=== PATIENT | female | born 1955 | race Caucasian/White ===

== ENCOUNTER 2023-11-16 06:19 | Day surgery (SDC) | payer MEDICARE, SELFPAY ==
[2023-11-16 06:34] VITALS: BMI 26.7
[2023-11-16 06:51] VITALS: BP 148/90; PULSE 73; RESP 16; TEMP 36.7; O2SAT 97
[2023-11-16 06:53] LABS: Hemoglobin* 14.7 gm/dL (12.0-16.0)
[2023-11-16] MEDS: LACTATED RINGERS 1000 ML 1,000 ML 100 ML IV (06:55)
--- NOTE | 2023-11-16 07:19 | W.PM.H&PU ---
History & Physical Update History & Physical Update H&P Reviewed and patient assessed: No changes noted
--- NOTE | 2023-11-16 07:19 | PM.PROC ---
Procedure Note Time Seen by Provider: 08:13 Date Seen: 11/16/23 Date of procedure: 11/16/23 Will [facility] bill your pro fee for this procedure?: Yes Surgeon: Preop diagnosis: Eva is a 68 year-old woman with stress urinary incontinence. Postop diagnosis: Same. Procedure: Transobturator, suburethral sling placement Anesthesia: Conscious sedation, local Total IV fluid: 1000 mL Estimated blood loss : 30 mL Specimen: None Drains: Manrique to gravity Findings: On diagnostic cystoscopy after the sling was placed to there was no evidence of bladder or urethral injury. Procedure Eva was taken to the operating room and conscious sedation was found to be adequate. The patient was placed in high Olsen's position for the sling placement. A weighted speculum was placed in the posterior vaginal introitus. A marker was used to place turner in the groin folds at the level of the clitoris. 1% lidocaine with epinephrine was injected into both the groin fold incision sites and the anterior aspect of the vaginal canal at the mid urethral junction. Two punch incisions were made at each of the groin fold sites. A 2 cm it vertical incision was made anterior aspect of the vaginal canal just below the mid urethral junction. The right Devon trocar was then advanced through the right groin incision and the right side of the sling was attached to the trocar and the trocar reverse through the incision to pull the sling through. The left trocar was then placed in the left side of the sling then pulled through in a similar manner. The Manrique catheter was briefly removed for diagnostic cystoscopy with the above finding stated. A 9. Cervical dilator was placed between the sling and the vaginal canal and the sling pulled tight. The trocars were then removed using a scissors, the plastic overlying the sling was removed and the sling cut to below the groin fold skin incisions. Exofin adhesive gel was applied to the groin fold incisions. The vaginal incision was repaired using 2-0 Vicryl in a running locked manner. The speculum was removed. Sponge, lap and instrument counts were correct x2 at the end the procedure. The patient was awakened from anesthesia taken to the recovery area in stable condition. The patient received 2gm Ancef prior to the start of the procedure
[2023-11-16] MEDS: CEFAZOLIN 2 GM INJ IVP (07:41)
[2023-11-16] MEDS: KETOROLAC 30 MG/ML inj IVP (08:05)
[2023-11-16 08:15] VITALS: BP 123/65; PULSE 92; RESP 16; TEMP 36.7; O2SAT 96
--- NOTE | 2023-11-16 08:16 | P.ANES_ITS ---
Anesthesia Charges Start Date/Time Anesthesia Start Date: 11/16/23 Anesthesia Start Time: 07:28 Stop Date/Time Anesthesia Stop Date: 11/16/23 Anesthesia Stop Time: 08:15 Summary Extremes of Age - Over 70 or under 1: [employer]
--- NOTE | 2023-11-16 08:18 | W.ANESCHARGE ---
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
[2023-11-16 08:30] VITALS: BP 134/74; PULSE 82; RESP 16; O2SAT 96
[2023-11-16 08:45] VITALS: BP 143/87; PULSE 80; RESP 16; O2SAT 96
[2023-11-16 09:05] VITALS: BP 130/88; PULSE 87; RESP 16; O2SAT 95
--- NOTE | 2023-11-16 10:11 | SUR.PHASEII ---
0930: 300cc normal saline inserted into bladder via urinary catheter. at 0945 pt states I need to use bathroom. Pt leaking urine on bed, pt voided 900cc in bedside commode. Updated Dr. Sanders. Okay to discharge home.
== END 2023-11-16 09:51 | disposition home or self-care (01) ==
PROVIDERS: PCP Family Medicine; Visit Provider Obstetrics & Gynecology
PROC: (CPT 57288; principal; 2023-11-16 07:30)
DX: N39.3 Stress incontinence (female) (male) (principal)
CPT/HCPCS: 57288; 00860; 36415; 85018; 86850; 86900; 86901; 99100; A4344; C1771; J0690; J1100; J1885; J2405; J2704; J3010; J7120